=== PATIENT | female | born 1990 | race Caucasian/White ===

== ENCOUNTER 2016-11-03 05:21 | Inpatient (IN) | payer BC, OTHER ==
[~2016-11-03] VITALS: Ht 157.5 cm; Wt 76.0 kg
[2016-11-03] VITALS (10 sets, daily range): BP systolic 110–131; BP diastolic 52–77
[~2016-11-03 05:21] MED LIST: FOLIC ACID0.4 MG PO; LO-DOSE ASPIRIN81 M2 PO; PRENATAL TABLE1 EAC3 PO
[2016-11-03 06:15] LABS: EOSINOPHIL (%) 0.9 % (0-5); EOSINOPHIL COUNT 0.1 K/uL (0-0.3); HEMATOCRIT 36.2 % (36.0-46.0); IMMATURE GRANULOCYTE (%) 1.3 % (0.0-0.7); IMMATURE GRANULOCYTE COUNT 0.2 K/uL; LYMPHOCYTE COUNT 3.2 K/uL (1.0-2.8); MCH 32.3 PG (29.0-34.0); MCHC 34.3 G/DL (30.0-36.0); MCV 94.3 FL (83-99); MEAN PLAT.VOLUME 12.1 uM^3 (9.5-12.4); MONOCYTE (%) 6.1 % (3-12); MONOCYTE COUNT 0.8 K/uL (0-0.8); NEUTROPHIL (%) 66.3 % (45-76); NEUTROPHIL COUNT 8.5 K/uL (1.8-6.4); PLATELET COUNT 301 K/uL (156-360); RBC DIS.WIDTH-CV 13.4 % (11.8-14.6); RBC DIS.WIDTH-SD 45.4 % (39-53); RED BLOOD COUNT 3.84 M/uL (3.80-5.20); WHITE BLOOD COUNT 12.8 K/uL (4.1-10.2)
[2016-11-03 06:28] LABS: ADD MIUA? YES; BILIRUBIN NEGATIVE; BLOOD SMALL; COLOR DK YELLOW ((YELLOW)); GLUCOSE (STRIP) NEGATIVE; KETONES TRACE; LEUKOCYTES TRACE; NITRITE NEGATIVE; PROTEIN (STRIP) 30; SPECIFIC GRAVITY 1.025 (1.000-1.030); UROBILINOGEN 0.2 MG/DL (0.2-1.0)
[2016-11-03 06:55] LABS: EPITHELIAL CELLS 1+; MUCUS 2+
[2016-11-03 06:56] LABS: BACTERIA 1+
[2016-11-03 06:57] LABS: CASTS NONE SEEN /LPF; CRYSTALS NONE SEEN
[2016-11-03] MEDS ORDERED: IBUPROFEN800 MG PO (08:42)
[2016-11-03] MEDS ORDERED: ENDOCET 5-3251 EACH PO (08:42)
[2016-11-03] MEDS ORDERED: BREAST PUMP MC (14:11)
[2016-11-04] VITALS (7 sets, daily range): BP systolic 91–115; BP diastolic 52–71
[2016-11-04 08:17] LABS: EOSINOPHIL (%) 0.3 % (0-5); HEMATOCRIT 30.3 % (36.0-46.0); IMMATURE GRANULOCYTE (%) 0.6 % (0.0-0.7); IMMATURE GRANULOCYTE COUNT 0.1 K/uL; LYMPHOCYTE COUNT 3.1 K/uL (1.0-2.8); MCH 31.4 PG (29.0-34.0); MCHC 32.7 G/DL (30.0-36.0); MCV 96.2 FL (83-99); MEAN PLAT.VOLUME 11.1 uM^3 (9.5-12.4); MONOCYTE (%) 5.8 % (3-12); MONOCYTE COUNT 0.9 K/uL (0-0.8); NEUTROPHIL (%) 73.1 % (45-76); NEUTROPHIL COUNT 11.4 K/uL (1.8-6.4); PLATELET COUNT 264 K/uL (156-360); RBC DIS.WIDTH-CV 13.6 % (11.8-14.6); RBC DIS.WIDTH-SD 47.1 % (39-53); RED BLOOD COUNT 3.15 M/uL (3.80-5.20); WHITE BLOOD COUNT 15.6 K/uL (4.1-10.2)
[2016-11-05 02:28] VITALS: BP 112/61
== END 2016-11-05 16:36 | disposition home or self-care (01) | DRG 765 ==
LOC: 2SOUTH → 2WEST 05:21 → 2SOUTH 07:50 → 2WEST 11-05 16:36
PROVIDERS: Obstetrics & Gynecology
PROC: 10D00Z1 Extraction of Products of Conception, Low, Open Approach (ICD-10-PCS; principal; 2016-11-03)
DX: O34.211 Maternal care for low transverse scar from previous cesarean delivery (principal); O99.12 Other diseases of the blood and blood-forming organs and certain disorders involving the immune mechanism complicating childbirth; D68.51 Activated protein C resistance; D68.59 Other primary thrombophilia; O34.593 Maternal care for other abnormalities of gravid uterus, third trimester; N85.8 Other specified noninflammatory disorders of uterus; Z3A.39 39 weeks gestation of pregnancy; Z37.0 Single live birth
CPT/HCPCS: 36415; 81003; 85025; 86850; 86900; 86901; 87086; J0690; J1100; J1650; J2274; J2405; J3010; J7120